=== PATIENT | male | born 1980 | race Caucasian/White ===

== ENCOUNTER 2023-05-07 19:33 | Emergency (ER) | payer BC, MEDICAID, SELFPAY ==
[2023-05-07 19:45] VITALS: BP 113/80; PULSE 92; RESP 18; TEMP 36.6; O2SAT 99; BMI 32.0
--- NOTE | 2023-05-07 20:30 | XRR_ITS ---
PROCEDURE INFORMATION: Exam: XR Right Knee Exam date and time: 05/07/2023 8:35 PM Age: 42 years old Clinical indication: Pain; Knee; Right; Additional info: Right knee injury TECHNIQUE: Imaging protocol: Radiologic exam of the right knee. Views: 3 views. COMPARISON: No relevant prior studies available. FINDINGS: Bones/joints: Acute comminuted fracture of the patella. There is 5 mm of separation of the patellar fracture fragments. No fracture of the femur, tibia, or fibula. Soft tissues: Anterior soft tissue swelling noted. XR/XR knee RT 3V* [id number] IMPRESSION: Acute comminuted fracture of the patella.
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
[2023-05-07 21:42] VITALS: RESP 16
[2023-05-07] MEDS: ketorolac 30 mg/mL INJ 15 MG IM (21:42)
[2023-05-07] MEDS: morphine 4 mg/mL SDV 1 mL IM (21:42)
[2023-05-07] MEDS: oxyCODONE 5 mg IR Tab/Cap 15 MG PO (22:07)
[2023-05-07 22:18] VITALS: RESP 16
--- NOTE | 2023-05-08 11:58 | PC.SOCIAL ---
Addendum entered by Carmen Davis 05/13/23 13:38: Patient had a follow up appointment scheduled with ortho - patient did attend appointment. Original Note: Ortho referral Referral sent to ortho at this time. Clinic will contact patient with appt date/time.
== END 2023-05-07 22:19 | disposition home or self-care (01) ==
PROVIDERS: Emergency Provider Emergency Medicine; PCP Family Medicine
DX: S82.041A Displaced comminuted fracture of right patella, initial encounter for closed fracture (principal); V28.09XA Other motorcycle driver injured in noncollision transport accident in nontraffic accident, initial encounter; Y93.I9 Activity, other involving external motion; Y92.096 Garden or yard of other non-institutional residence as the place of occurrence of the external cause
CPT/HCPCS: 29530; 73562; 96372; 99284; E0114; J1885; J2270

== ENCOUNTER → 2023-05-12 11:17 | Outpatient (BNVA) | payer BC, MEDICAID, SELFPAY | PROVIDERS: PCP Family Medicine; Referring Provider Emergency Medicine; Visit Provider Specialist | DX: S82.041A Displaced comminuted fracture of right patella, initial encounter for closed fracture; V29.99XA Rider (driver) (passenger) of other motorcycle injured in unspecified traffic accident, initial encounter | CPT/HCPCS: 73562 ==

== ENCOUNTER → 2023-06-01 09:22 | Outpatient (BNVA) | payer MEDICAID, SELFPAY | PROVIDERS: PCP Family Medicine; Visit Provider Specialist | DX: S82.041D Displaced comminuted fracture of right patella, subsequent encounter for closed fracture with routine healing; V28.09XD Other motorcycle driver injured in noncollision transport accident in nontraffic accident, subsequent encounter | CPT/HCPCS: 73562 ==

== ENCOUNTER 2023-06-01 11:46 | Outpatient (CLI) | payer MEDICAID, SELFPAY | END 2023-06-01 11:47 | disposition home or self-care (01) | LOC: SPT 11:47 | PROVIDERS: PCP Family Medicine; Visit Provider Specialist | DX: Z46.89 Encounter for fitting and adjustment of other specified devices (principal); S82.041D Displaced comminuted fracture of right patella, subsequent encounter for closed fracture with routine healing; V29.99XD Rider (driver) (passenger) of other motorcycle injured in unspecified traffic accident, subsequent encounter | CPT/HCPCS: 97760; 99024; L1832 ==

== ENCOUNTER → 2023-06-22 09:47 | Outpatient (BNVA) | payer MEDICAID, SELFPAY | PROVIDERS: PCP Family Medicine; Visit Provider Specialist | DX: S82.041D Displaced comminuted fracture of right patella, subsequent encounter for closed fracture with routine healing; X58.XXXD Exposure to other specified factors, subsequent encounter | CPT/HCPCS: 73562 ==

== ENCOUNTER 2023-06-22 11:03 | Outpatient (CLI) | payer MEDICAID, SELFPAY | END 2023-06-22 11:04 | disposition home or self-care (01) | LOC: SPT 11:04 | PROVIDERS: PCP Family Medicine; Visit Provider Specialist | DX: Z46.89 Encounter for fitting and adjustment of other specified devices (principal); S82.009D Unspecified fracture of unspecified patella, subsequent encounter for closed fracture with routine healing; X58.XXXD Exposure to other specified factors, subsequent encounter | CPT/HCPCS: 97760; L1812 ==

== ENCOUNTER → 2023-07-22 09:07 | Outpatient (BNVA) | payer MEDICAID, SELFPAY | PROVIDERS: PCP Family Medicine; Visit Provider Specialist | DX: S82.041D Displaced comminuted fracture of right patella, subsequent encounter for closed fracture with routine healing; X58.XXXD Exposure to other specified factors, subsequent encounter | CPT/HCPCS: 73562 ==

== ENCOUNTER 2024-02-06 14:03 | Emergency (ER) | payer MEDICAID, SELFPAY ==
[2024-02-06 14:10] VITALS: BP 125/96; PULSE 64; RESP 18; O2SAT 96
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
--- NOTE | 2024-02-06 14:28 | ED_ITS ---
Documented by User: BREANNA Emanuel 02/06/24 16:26 HPI - Back Pain/Injury General: Chief Complaint: Back Pain/Injury Stated Complaint: EXTREME BACK PAIN Time Seen by Provider: 02/06/24 14:08 Source: patient Mode of arrival: EMS Limitations: no limitations History of Present Illness: Patient is a 43-year-old male presenting to the emergency department via EMS due to lower back pain onset just prior to arrival. Per EMS, patient was lifting a gun safe, when he felt an immediate pop and pain began to his mid to low back. He has no prior injuries or surgical history to his back. No pertinent past medical history. He notes that he has not been able to move or walk since this occurred. He is denying any bowel or bladder incontinence, numbness weakness or tingling in his extremities, or any other concerning or red flag back symptoms. His pain is currently 9/10, he was not given anything for pain with EMS. The patient describes the pain as sharp and states it is midline. MD elicited complaint: back pain Pertinent past history: other (Nontraumatic) Onset (ago): minute(s) Timing: constant Severity: severe Pain scale (0-10): 9 Similar Symptoms Previously: No Quality: sharp Location: lumbar spine and thoracic spine Exacerbating factors: movement Relieving factors: none Context: while lifting Associated symptoms: Deny abdominal pain, chills, dysuria, fatigue, fever(s), nausea or vomiting Work related injury: No Review of Systems General: Reports: 10 or more systems reviewed and unremarkable except in HPI and below Const: Denies: fever(s), chills or fatigue Eyes: Denies: change in vision ENMT: Denies: throat pain, ear or mastoid pain or nasal discharge Card: Denies: chest pain, palpitations, swelling of feet/ankles or lightheadedness Resp: Denies: dyspnea, productive cough or wheezing GI: Denies: abdominal pain, nausea, vomiting, diarrhea or constipation : Denies: flank pain, difficulty urinating, dysuria or urinary frequency Musc: Reports: back pain; Denies: neck pain or joint pain Skin/Breast: Denies: rash Neuro: Denies: headache(s), numbness in extremities or weakness in extremities PFS ED PFSH: Medical History No significant past medical history Surgical History No significant past surgical history Social History Smoking and tobacco/nicotine status: never used tobacco/nicotine Alcohol intake: never Physical Exam Const: COMMON NORMALS: average body habitus, patient oriented x3, no limitations and alert GENERAL APPEARANCE: cooperative and in distress (From pain) ORIENTATION/CONSCIOUSNESS: Yes awake HENMT: COMMON NORMALS: normocephalic, atraumatic, hearing grossly normal bilaterally, external ears normal and Normal external nose present HEAD & SCALP: normocephalic and atraumatic NOSE: Normal external nose present EXTERNAL EAR: Yes external ears normal Eye: COMMON NORMALS: Equal, round and reactive pupils present, EOMs intact bilaterally and conjunctivae normal CONJUNCTIVA: Yes conjunctivae normal PUPIL: Yes Equal, round and reactive pupils present Neck/C-Spine: COMMON NORMALS: full ROM and supple GENERAL: Yes normal visual inspection CERVICAL SPINE: Yes cervical ROM normal Chest: COMMONS NORMALS: normal inspection of the chest Resp: COMMON NORMALS: normal respiratory effort, No retractions, No use of accessory muscles and clear to auscultation bilaterally AUSCULTATION: clear to auscultation bilaterally Cardio: COMMON NORMALS: regular rate, regular rhythm, No gallops present (Cardio), No clicks present (Cardio), No murmurs present (Cardio), No rub (Cardio) and Peripheral pulses 2+ throughout RATE: regular rate RHYTHM: regular rhythm PERIPHERAL PULSES: Peripheral pulses 2+ throughout Back/Pelvis: COMMON NORMALS: thoracic and lumbar spine normal to inspection THORACIC SPINE/UPPER BACK: Yes ROM limited, Yes pain with ROM and Yes thoracic spinal tenderness LUMBAR SPINE/LOWER BACK: Yes ROM limited, Yes pain with ROM, Yes lumbar spinal tenderness, Yes straight leg raise positive right and Yes straight leg raise positive left Extremity: COMMON NORMALS: normal to inspection, full ROM, capillary refill normal and no joint enlargement Neuro: COMMON NORMALS: patient oriented x3, CN's II-XII intact bilaterally, moves all extremities, no focal motor deficits, no sensory deficits noted and deep tendon reflexes 2+ bilaterally SENSORIUM/ORIENTATION: Yes alert Psych: COMMON NORMALS: mental status grossly normal Skin: COMMON NORMALS: no rashes or lesions noted GENERAL SKIN EXAM: no rashes or lesions noted Course Vital Signs: Vital signs: Vital Signs Pulse Rate 64 02/06/24 16:28 Respiratory Rate 18 02/06/24 16:28 Blood Pressure 125/96 02/06/24 16:28 Pulse Oximetry 96 02/06/24 16:28 Oxygen Delivery Me thod Room Air 02/06/24 14:10 MDM - Back Pain/Injury Medical Decision Making Patient brought in by ambulance for acute onset of nontraumatic back pain while lifting a heavy safe. He was in excruciating pain on arrival and states he could not move without reporting pain. I did give him a shot of Toradol and Norflex, as well as a steroid shot and upon recheck states he felt much better. He notes that if he does not move it the pain is a 0/10 but he is still feel some pain with movement. Initial x-rays of the thoracic and lumbar back did show evidence of a potential compression fracture but recommended a CT for further evaluation. CT of the lumbar spine did reveal a compression fracture of L1. I spoke with on-call orthopedic/spine surgeon, Dr. Sharma. He states that this patient can follow-up with him on an outpatient basis. Will send the patient home with pain medications to use prior to outpatient visit. Instructed him to gently increase range of motion as tolerated. Return precautions were given. Patient agrees with plan and will be discharged home. Labs Radiology Impressions Lumbar Spine X-Ray 02/06/24 14:13 IMPRESSION: Questionable compression fracture of the superior endplate of L1. Would recommend CT for further evaluation. Thoracic Spine X-Ray 02/06/24 14:13 IMPRESSION: No acute findings. Lumbar Spine CT 02/06/24 15:22 IMPRESSION: Acute compression fracture of the superior endplate of L1. All radiology interpretation(s) finalized by discharge Discharge Plan Discharge Patient Disposition: Home Clinical Impression: Closed compression fracture of L1 vertebra Qualifiers: Encounter type: initial encounter Qualified Code(s): S32.010A - Wedge compression fracture of first lumbar vertebra, initial encounter for closed fracture Condition: Stable Prescriptions: No Action tramadol 50 mg tablet 50 mg PO Q8H MDD 3 PRN (Reason: pain) 30 Days Qty: 90 0RF (DME) TLSO Brace See Rx Instructions .Route .MEDSUPPLY Qty: 1 0RF Rx Instructions: As directed Miralax 17 gram/dose powder 17 g PO TID PRN (Reason: constipation) Qty: 238 0RF ondansetron 4 mg tablet,disintegrating 4 mg PO Q8H PRN (Reason: nausea and vomiting) Qty: 15 0RF Discharge Orders: Discharge ED (Routine); Ordered 02/06/24 Ordered By: Jose Stephen Referrals: Jorge Luis Clifford MD [Primary Care Provider] - Discharge Diet: Usual diet Discharge Activity: Increase activity as tolerated Patient Instructions: Opioid Safety, Pain Management Activity Restrictions/Additional Instructions: Pain medications as needed. Gentle range of motion exercises as tolerated. Follow-up with orthopedics next week. Return with any new or concerning symptoms you may have. 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[employer] Documented by User: Simón Matthews DO 02/10/24 09:08 HPI - Back Pain/Injury General: Chief Complaint: Back Pain/Injury Stated Complaint: EXTREME BACK PAIN Time Seen by Provider: 02/06/24 14:08 [facility] ED PFSH: Medical History No significant past medical history Surgical History No significant past surgical history Social History Smoking and tobacco/nicotine status: never used tobacco/nicotine Alcohol intake: never Course Vital Signs: Vital signs: Vital Signs Pulse Rate 64 02/06/24 16:28 Respiratory Rate 18 02/06/24 16:28 Blood Pressure 125/96 02/06/24 16:28 Pulse Oximetry 96 02/06/24 16:28 Oxygen Delivery Me thod Room Air 02/06/24 14:10 MDM - Back Pain/Injury Medical Decision Making Patient brought in by ambulance for acute onset of nontraumatic back pain while lifting a heavy safe. He was in excruciating pain on arrival and states he could not move without reporting pain. I did give him a shot of Toradol and Norflex, as well as a steroid shot and upon recheck states he felt much better. He notes that if he does not move it the pain is a 0/10 but he is still feel some pain with movement. Initial x-rays of the thoracic and lumbar back did show evidence of a potential compression fracture but recommended a CT for further evaluation. CT of the lumbar spine did reveal a compression fracture of L1. I spoke with on-call orthopedic/spine surgeon, Dr. Sharma. He states that this patient can follow-up with him on an outpatient basis. Will send the patient home with pain medications to use prior to outpatient visit. Instructed him to gently increase range of motion as tolerated. Return precautions were given. Patient agrees with plan and will be discharged home. Chart reviewed Labs Radiology Impressions Lumbar Spine X-Ray 02/06/24 14:13 IMPRESSION: Questionable compression fracture of the superior endplate of L1. Would recommend CT for further evaluation. Thoracic Spine X-Ray 02/06/24 14:13 IMPRESSION: No acute findings. Lumbar Spine CT 02/06/24 15:22 IMPRESSION: Acute compression fracture of the superior endplate of L1. Discharge Plan Discharge Patient Disposition: Home Clinical Impression: Closed compression fracture of L1 vertebra Qualifiers: Encounter type: initial encounter Qualified Code(s): S32.010A - Wedge compression fracture of first lumbar vertebra, initial encounter for closed fracture Condition: Stable Prescriptions: No Action tramadol 50 mg tablet 50 mg PO Q8H MDD 3 PRN (Reason: pain) 30 Days Qty: 90 0RF (DME) TLSO Brace See Rx Instructions .Route .MEDSUPPLY Qty: 1 0RF Rx Instructions: As directed Miralax 17 gram/dose powder 17 g PO TID PRN (Reason: constipation) Qty: 238 0RF ondansetron 4 mg tablet,disintegrating 4 mg PO Q8H PRN (Reason: nausea and vomiting) Qty: 15 0RF Discharge Orders: Discharge ED (Routine); Ordered 02/06/24 Ordered By: Jose Stephen Referrals: Jorge Luis Clifford MD [Primary Care Provider] - Discharge Diet: Usual diet Discharge Activity: Increase activity as tolerated Patient Instructions: Opioid Safety, Pain Management Activity Restrictions/Additional Instructions: Pain medications as needed. Gentle range of motion exercises as tolerated. Follow-up with orthopedics next week. Return with any new or concerning symptoms you may have. 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
[2024-02-06] MEDS: dexamethasone 10 mg/mL INJ 8 MG IM (14:29)
[2024-02-06] MEDS: orphenadrine 30 mg/mL Inj 2 mL 60 MG IM (14:30)
[2024-02-06] MEDS: ketorolac 60 mg/2 mL INJ IM (14:30)
--- NOTE | 2024-02-06 15:22 | CTR_ITS ---
PROCEDURE INFORMATION: Exam: CT Lumbar Spine Without Contrast Exam date and time: 02/06/2024 3:35 PM Age: 43 years old Clinical indication: Abnormal findings; Abnormal xray or scan of thoracolumbar spine; Additional info: Questionable FX on XR TECHNIQUE: Imaging protocol: Computed tomography of the lumbar spine without contrast. Radiation optimization: All CT scans at this facility use at least one of these dose optimization techniques: automated exposure control; mA and/or kV adjustment per patient size (includes targeted exams where dose is matched to clinical indication); or iterative reconstruction. COMPARISON: CR XR lumbar spine 2-3V* [id number] 02/06/2024 2:27 PM RADIATION DOSE METRICS: Total DLP (mGy-cm): 837.2 FINDINGS: Bones/joints: Acute compression fracture of the superior endplate of L1. Normal alignment. No significant disc bulge or herniation. No severe spinal canal stenosis. No significant neural foraminal narrowing. Soft tissues: Unremarkable. CT/CT lumbar spine wo con* [id number] IMPRESSION: Acute compression fracture of the superior endplate of L1.
[2024-02-06] MEDS: HYDROcodone-acetaminophen 7.5-325 mg Tablet 1 TAB PO (16:20)
[2024-02-06 16:28] VITALS: BP 125/96; PULSE 64; RESP 18; O2SAT 96
== END 2024-02-06 17:04 | disposition home or self-care (01) ==
PROVIDERS: Emergency Provider Physician Assistant; PCP Family Medicine
DX: S32.010A Wedge compression fracture of first lumbar vertebra, initial encounter for closed fracture (principal); X50.0XXA Overexertion from strenuous movement or load, initial encounter
CPT/HCPCS: 72072; 72100; 72131; 96372; 99284; J1100; J1885; J2360

== ENCOUNTER → 2024-03-08 15:59 | Outpatient (BNVA) | payer MEDICAID, SELFPAY | PROVIDERS: PCP Family Medicine; Visit Provider Orthopaedic Surgery | DX: S32.010A Wedge compression fracture of first lumbar vertebra, initial encounter for closed fracture (principal); X58.XXXA Exposure to other specified factors, initial encounter | CPT/HCPCS: 72100 ==

== ENCOUNTER → 2024-04-05 15:31 | Outpatient (BNVA) | payer MEDICAID, SELFPAY | PROVIDERS: PCP Family Medicine; Visit Provider Orthopaedic Surgery | DX: S32.000A Wedge compression fracture of unspecified lumbar vertebra, initial encounter for closed fracture (principal); X58.XXXA Exposure to other specified factors, initial encounter | CPT/HCPCS: 72100 ==

== ENCOUNTER → 2024-05-03 14:39 | Outpatient (BNVA) | payer MEDICAID, SELFPAY | PROVIDERS: PCP Family Medicine; Visit Provider Orthopaedic Surgery | DX: S32.019A Unspecified fracture of first lumbar vertebra, initial encounter for closed fracture (principal); X58.XXXA Exposure to other specified factors, initial encounter | CPT/HCPCS: 72100 ==

== ENCOUNTER 2024-10-31 16:38 | Outpatient (CLI) | payer MEDICAID, SELFPAY | END 2024-10-31 16:39 | disposition home or self-care (01) | LOC: SLEEP 16:40 | PROVIDERS: PCP Electrodiagnostic Medicine; Visit Provider Electrodiagnostic Medicine | DX: G47.33 Obstructive sleep apnea (adult) (pediatric) (principal); G47.36 Sleep related hypoventilation in conditions classified elsewhere | CPT/HCPCS: G0399 ==